=== PATIENT | female | born 1945 ===

== ENCOUNTER 2025-06-08 19:52 | Emergency (ER) | payer MEDICARE, SELFPAY ==
[2025-06-08] VITALS (21 sets, daily range): BP systolic 74–131; BP diastolic 49–90; PULSE 84–101; RESP 11–40; TEMP 36.2; O2SAT 91–99; BMI 22.8
--- NOTE | 2025-06-08 20:09 | EKG_ITS ---
[place] [id number] [place] [id number] Test Date: 2025-06-08 Pat Name: Roxanne Mckeon Department: [facility] Room: Gender: Female [employer]: : 1945 Requested By: Order Number: [id number] Reading MD: Manuelito Pillai Measurements Intervals Grady Rate: 114 P: CO: QRS: -16 QRSD: 72 T: 20 QT: 322 QTc: 443 Interpretive Statements Atrial fibrillation with rapid ventricular response Septal infarct , age undetermined Electronically Signed On 06-09-2025 10:19:48 PDT by Manuelito Pillai
--- NOTE | 2025-06-08 20:25 | DI.RAD.S_ITS ---
PROCEDURE: XR CHEST 1V INDICATIONS: palpitations TECHNIQUE: One view of the chest was acquired. COMPARISON: None. FINDINGS: Surgical changes and devices: None. Lungs and pleura: Lungs are clear. No pleural effusions or pneumothorax. Mediastinum: Mediastinal contours appear normal. Heart size is normal. Bones and chest wall: No suspicious bony lesions. Overlying soft tissues appear unremarkable. IMPRESSION: No acute cardiopulmonary abnormality is seen. Dictated by: Jovani Lizarraga M.D. on 06/08/2025 at 20:56 Approved by: Jovani Lizarraga M.D. on 06/08/2025 at 20:56
--- NOTE | 2025-06-08 20:41 | ED_ITS ---
HPI - Dizziness General Chief Complaint: Dizziness Stated Complaint: LBP 75/60 Time Seen by Provider: 06/08/25 20:24 Source: patient Mode of arrival: Ambulatory History of Present Illness HPI Narrative: Patient is a 79-year-old female with a past medical history of AFib on Eliquis, states that she had an ablation and does have a Watchman that was placed on 05/13. Comes in complaining of lightheadedness, and low blood pressure. She states that she checked her blood pressure when she was having these symptoms and it was 78/60. Here patient blood pressure 126/84, patient's heart rate 84. She states that she is currently not having these symptoms but due to her low blood pressure was concern decided come into the ED for further evaluation treatment denies any syncopal symptoms, denies any chest pain shortness breath fever chills nausea vomiting abdominal pain or any other GI/ symptoms time. Related Data Allergies Allergy/AdvReac Type Severity Reaction Status Date / Time No Known Drug Allergies Allergy Verified 06/08/25 20:07 Review of Systems Review of Systems Narrative: General: Denies fever, chills, weight loss HEENT: Denies headache, eye drainage, eye irritation, head trauma, sore throat, voice change Cardiovascular: Positive palpitations, low blood pressure Denies any chest pain, tachycardia Respiratory: Denies any shortness of breath, cough, wheeze, stridor GI/: Denies any abdominal pain, nausea, vomiting, diarrhea, bright red blood per rectum, melanotic stools, urinary frequency, urinary retention, dysuria, hematuria MSK: Denies any joint pain, muscle pains, swelling Skin: Denies any rashes, lesions, discoloration Neuro: Positive light-headedness Denies any headache, dizziness, fainting, weakness Psych: Denies SI/HI Patient History Social History Smoking Status: Never smoker Smoking Status: Never smoker Exam Narrative Exam Narrative: General: Cooperative, well-developed, not in acute distress HEENT: Normocephalic, atraumatic, PERRLA, normal sclera, eyelids normal Neck: Active full range of motion, atraumatic Chest: Normal to inspection, negative crepitus, no overlying erythema ecchymosis Respiratory: Normal respiratory effort, not in acute respiratory distress, clear to auscultation bilaterally negative cough, wheeze, tachypnea, rhonchi, rales Cardiology: Irregularly irregular, negative gallop murmur rubs GI/: No tenderness to palpation, soft, non rigid, normal to inspection, exam deferred MSK: Full active range of motion in all 4 extremities, atraumatic, no tenderness to palpation of any bony prominences Skin: No rashes or lesions noted Neuro: Alert awake oriented x3, moves all 4 extremities spontaneously, cranial nerves intact, able to answer all questions appropriately follows commands appropriately Psych: Cooperative, negative suicidal or homicidal ideations Initial Vital Signs Initial Vital Signs: Vital Signs Temperature 97.1 F L 06/08/25 20:04 Pulse Rate 84 06/08/25 20:04 Respiratory Rate 18 06/08/25 20:04 Blood Pressure 126/84 06/08/25 20:04 Pulse Oximetry 98 06/08/25 20:04 Oxygen Delivery Method Room Air 06/08/25 20:04 Course Orders Ordered: ED Orders 06/08/25 20:09 EKG-12 Lead Stat 06/08/25 20:25 XR chest 1V Stat 06/08/25 21:15 Complete Blood Count AUTO DIFF Stat Comprehensive Metabolic Panel Stat Lipase Stat MAG [Magnesium] Stat NT-proBNP (BNP-Adult 18+) Stat PTT Partial Thromboplastin Nick Stat Prothrombin Time INR Stat TSH [Thyroid Stimulating Hormone] Stat Troponin & CK Cardiac Panel Stat Discontinued Medications Sodium Chloride (Normal Saline 0.9%) 500 mls @ 1,000 mls/hr IV BOLUS ONE Stop: 06/08/25 20:54 Last Infusion: 06/08/25 22:00 Dose: Infused Documented By: Admin: 06/08/25 21:34 Dose: 1,000 mls/hr Documented By: DAVE Vital Signs Vital signs: Vital Signs - 8 hr 06/08/25 20:04 06/08/25 20:18 06/08/25 20:21 Temperature 97.1 F L Pulse Rate 84 98 H 97 H Respiratory Rate 18 15 Blood Pressure 126/84 Pulse Oximetry 98 91 99 Oxygen Delivery Method Room Air 06/08/25 20:21 06/08/25 20:30 06/08/25 20:30 Temperature Pulse Rate 101 H Respiratory Rate Blood Pressure 114/67 74/49 L Pulse Oximetry 98 Oxygen Delivery Method 06/08/25 20:35 06/08/25 20:35 06/08/25 20:45 Temperature Pulse Rate 98 H 90 Respiratory Rate 22 Blood Pressure 113/66 Pulse Oximetry 98 97 Oxygen Delivery Method 06/08/25 20:45 06/08/25 20:50 06/08/25 20:50 Temperature Pulse Rate 101 H Respiratory Rate 30 H Blood Pressure 102/63 101/82 Pulse Oximetry 98 Oxygen Delivery Method 06/08/25 21:00 06/08/25 21:01 06/08/25 21:01 Temperature Pulse Rate 94 H 97 H Respiratory Rate 11 L 16 Blood Pressure 94/72 Pulse Oximetry 99 98 Oxygen Delivery Method 06/08/25 21:05 06/08/25 21:05 06/08/25 21:10 Temperature Pulse Rate 93 H 95 H Respiratory Rate 16 26 H Blood Pressure 93/70 Pulse Oximetry 98 99 Oxygen Delivery Method 06/08/25 21:10 06/08/25 21:30 06/08/25 21:31 Temperature Pulse Rate 87 89 Respiratory Rate 35 H 40 H Blood Pressure 105/77 Pulse Oximetry 96 96 Oxygen Delivery Method 06/08/25 21:31 06/08/25 21:40 06/08/25 21:40 Temperature Pulse Rate 84 Respiratory Rate 14 Blood Pressure 112/84 100/75 Pulse Oximetry 97 Oxygen Delivery Method 06/08/25 22:00 06/08/25 22:00 06/08/25 22:11 Temperature Pulse Rate 87 86 Respiratory Rate 24 15 Blood Pressure 131/61 Pulse Oximetry 95 97 Oxygen Delivery Method 06/08/25 22:11 Temperature Pulse Rate Respiratory Rate Blood Pressure 122/75 Pulse Oximetry Oxygen Delivery Method MDM - Dizziness Differential Diagnosis Differential diagnosis: Likely orthostatic hypotension and other (AFib, ACS, pneumonia, electrolyte abnormality) Lab Data 06/08/25 21:15 06/08/25 21:15 Labs: Lab Results 06/08/25 Range/Units 21:15 WBC 5.3 (4.5-11.0) X10^3/uL RBC 4.24 (4.0-5.2) X10^6/uL Hgb 13.5 (12.0-16.0) g/dL Hct 39.5 (36-46) % MCV 93.2 (80-100) fL MCH 31.8 (26-34) PG MCHC 34.2 (30-36) % RDW 14.2 (11.6-14.8) % Plt Count 192 (150-400) X10^3/uL Neut % (Auto) 40.4 L (50-75) % Lymph % (Auto) 47.6 H (25-40) % Bryan % (Auto) 8.3 (3-14) % Eos % (Auto) 2.8 (2-4) % Baso % (Auto) 0.9 (0-2) % Neut # (Auto) 2100 (9411-7039) /uL Lymph # (Auto) 2500 (7188-5893) /uL Bryan # (Auto) 400 (0-900) /uL Eos # (Auto) 100 (0-450) /uL Baso # (Auto) 0 (0-100) /uL PT 11.3 (9.4-12.5) SECONDS INR 1.0 (0.9-1.3) APTT 27 (25.1-36.5) SECONDS Sodium 136 L (137-145) mmol/L Potassium 4.3 (3.4-5.1) mmol/L Chloride 106 (98-107) mmol/L Carbon Dioxide 25 (22-32) mmol/L BUN 24 H (7-17) mg/dL Creatinine 0.85 (0.52-1.04) mg/dL Estimated GFR > 60 (>60) mL/min BUN/Creatinine Ratio 28.2 H (6-22) Glucose 99 (70-99) mg/dL Calcium 8.9 (8.4-10.2) mg/dL Magnesium 2.0 (1.6-2.3) mg/dL Total Bilirubin 0.3 (0.2-1.3) mg/dL AST 33 (14-36) IU/L ALT 20 (<35) IU/L Alkaline Phosphatase 71 (38-126) U/L Total Creatine Kinase 50 (30-135) U/L Troponin I < 0.012 (0.01-0.034) ng/mL NT-Pro-B Natriuret Pep 2270 H (<450) pg/mL Total Protein 6.7 (6.3-8.2) g/dL Albumin 3.9 (3.5-5.0) g/dL Globulin 2.8 (1.7-4.1) g/dL Albumin/Globulin Ratio 1.4 (1.0-2.8) Lipase 56 (23-300) U/L TSH 2.42 (0.47-4.68) uIU/mL Imaging Data Chest x-ray: Radiologist's Impression: [address] [address] XRay Report Signed Patient: Roxanne Mckeon MR#: [id number] : 1945 Acct:[id number] Age/Sex: 79 / F Date of Service: 06/08/25 Loc: ED Accession Number: [id number] Procedure: XR chest 1V Ordering Provider: Yassine Hopkins D.O. PROCEDURE: XR CHEST 1V INDICATIONS: palpitations TECHNIQUE: One view of the chest was acquired. COMPARISON: None. FINDINGS: Surgical changes and devices: None. Lungs and pleura: Lungs are clear. No pleural effusions or pneumothorax. Mediastinum: Mediastinal contours appear normal. Heart size is normal. Bones and chest wall: No suspicious bony lesions. Overlying soft tissues appear unremarkable. IMPRESSION: No acute cardiopulmonary abnormality is seen. ECG Data Interpretation: EKG interpreted ED physician atrial fibrillation 114 beats per minute QTC 443, normal axis nonspecific ST changes no STEMI MDM Narrative Medical decision making narrative: Patient is a 79-year-old female with a history of AFib status post ablation Watchman on 05/13, is on Eliquis coming in for lightheadedness and low blood pressure. She states that she saw her blood pressure was low as 78/60 and was feeling lightheaded therefore decided come into the ED for further evaluation treatment. Denies any syncopal event, denies any other symptoms. Time of evaluation NIH of 0 no focal deficits blood pressure is 126/84, patient not in rapid AFib, did have lab work imaging performed here. Chest x-ray without any acute cardiopulmonary abnormality, lab work unremarkable, patient with only a mildly elevated BNP but not requiring any supplemental oxygen no shortness of breath, patient's troponin negative remaining lab work unremarkable. Patient states that she feels completely normal, patient has remained rate controlled here without any intervention, I did offer patient possible cardioversion however she states that she would like to defer at this time and follow up with her registered physical therapist and primary care doctor. She was given strict return precautions she verbalized understanding of this and agrees to being discharged home with outpatient follow up Discharge Plan Departure Patient Disposition: Home Clinical Impression: A-fib Activity Restrictions/Additional Instructions: Please follow up with your registered physical therapist and your primary care doctor in outpatient setting Please read the discharge instructions sheet carefully and bring all papers to all doctor follow-up visits, as it may contain information that your doctor may want to see. Disease processes change and evolve, if your symptoms worsen or if you develop any new symptoms that are concerning to you please return for evaluation. Your evaluation today does not show any evidence of any life- threatening/serious illnesses requiring admission to the hospital or surgery. Please follow-up with your doctor for re-evaluation in approximately 1 day. Seek immediate medical attention for any worrisome symptoms. *If you do not have a primary care provider please contact the [facility] Resource line at [phone]. They will ask some questions about your medical history and help get you set up with a doctor in the community. Stand Alone Forms: Patient Portal/API
[2025-06-08 21:21] LABS: Add Manual Diff / Slide Review NO; Hematocrit 39.5 % (36-46); Hemoglobin 13.5 g/dL (12.0-16.0); Lymphocytes Absolute Auto 2500 /uL (1100-4500); Mean Corpuscular HGB Conc 34.2 % (30-36); Mean Corpuscular Hemoglobin 31.8 PG (26-34); Mean Corpuscular Volume 93.2 fL (80-100); Platelet Count 192 X10^3/uL (150-400)
[2025-06-08 21:30] LABS: INR 1.0 (0.9-1.3); Prothrombin Time 11.3 SECONDS (9.4-12.5)
[2025-06-08 21:33] LABS: PTT Partial Thromboplastin Tim 27 SECONDS (25.1-36.5)
[2025-06-08] MEDS: SODIUM CHLORIDE 0.9% 500 ML 1000 ML IV (21:34)
[2025-06-08 21:36] LABS: Magnesium 2.0 mg/dL (1.6-2.3)
[2025-06-08 21:37] LABS: Alanine Aminotransferase 20 IU/L (<35); Albumin 3.9 g/dL (3.5-5.0); Albumin Globulin Ratio 1.4 (1.0-2.8); Alkaline Phosphatase 71 U/L (38-126); Blood Urea Nitrogen 24 mg/dL (7-17); Calcium 8.9 mg/dL (8.4-10.2); Carbon Dioxide 25 mmol/L (22-32); Chloride 106 mmol/L (98-107); Creatine Kinase 50 U/L (30-135); Estimated Glomerular Filt Rate > 60 mL/min (>60); Globulin 2.8 g/dL (1.7-4.1); Glucose 99 mg/dL (70-99); HEMOLYSIS 24 (0-50); Lipase 56 U/L (23-300); Potassium 4.3 mmol/L (3.4-5.1); Sodium 136 mmol/L (137-145); Total Protein 6.7 g/dL (6.3-8.2)
[2025-06-08 21:45] LABS: NT-proBNP (BNP-Adult 18+) 2270 pg/mL (<450)
[2025-06-08 21:49] LABS: Troponin I < 0.012 ng/mL (0.01-0.034)
[2025-06-08 22:15] LABS: Thyroid Stimulating Hormone 2.42 uIU/mL (0.47-4.68)
== END 2025-06-08 23:05 | disposition home or self-care (01) ==
PROVIDERS: Emergency Provider Student in an Organized Health Care Education/Training Program
DX: I48.91 Unspecified atrial fibrillation (principal); I95.9 Hypotension, unspecified; R00.2 Palpitations; Z79.01 Long term (current) use of anticoagulants
CPT/HCPCS: 36415; 71045; 80053; 82550; 83690; 83735; 83880; 84443; 84484; 85025; 85610; 85730; 93005; 99284